=== PATIENT | female | born 1985 | race Caucasian/White ===

== ENCOUNTER 2017-08-09 16:35 | Emergency (ER) | payer OTHER ==
--- NOTE | 2017-08-09 16:45 | PDOC ---
History of Present Illness - General Chief Complaint: Injury Stated Complaint: RIGHT FOOT/TOE PAIN Time Seen by Provider: 08/09/17 16:45 - History of Present Illness Initial Comments: 08/09/17 16:47 Chief complaint: Foot injury History of present illness: Stubbed her toe last night on her bed. Pain and swelling right second toe. No other injuries Physical exam alert no acute distress Afebrile vital signs normal Right foot: Second toe is red and swollen. No obvious deformity. No other trauma noted to the foot ankle or leg. Impression: Fractured toe Plan: X-ray and further orthopedic management depending on nature of injury. Past History - Past Medical History Allergies/Adverse Reactions: Allergies Allergy/AdvReac Type Severity Reaction Status Date / Time No Known Allergies Allergy Verified 08/09/17 16:44 Home Medications: Ambulatory Orders Ibuprofen 600 mg PO QID PRN #20 tablet 08/09/17 Medical Decision Making - Medical Decision Making 08/09/17 17:47 X-ray reviewed: Nondisplaced fracture of the dorsal lip of the distal phalanx, and nondisplaced fracture of the medial metaphysis of the distal phalanx. No deformity either angular or rotational suggested by the x-ray. Rest ice elevation and symptomatic treatment recommended. Orthopedic follow-up. *DC/Admit/Observation/Transfer Diagnosis at time of Disposition: Fractured toe Qualifiers: Encounter type: initial encounter Toe: lesser toe Fracture type: closed Phalanx : unspecified phalanx Fracture alignment: nondisplaced Laterality: right Qualified Code(s): S92.504A - Nondisplaced unspecified fracture of right lesser toe(s), initial encounter for closed fracture - Discharge Dispostion Disposition: HOME Condition at time of disposition: Improved Admit: No - Prescriptions Prescriptions: Ibuprofen 600 mg PO QID PRN #20 tablet PRN Reason: Pain - Referrals Referrals: Jamel Booth MD [Staff Physician] - 1 week - Patient Instructions Printed Discharge Instructions: DI for Toe Fracture Additional Instructions: Rest ice and elevate. Pain medication as needed and prescribed. Walking as tolerated once pain subsides. See orthopedist for follow-up as for any fracture. No manipulation of the injury is necessary at this time. - Post Discharge Activity Forms/Work/School Notes: Back to Work
[2017-08-09 16:52] VITALS: BP 106/70; PULSE 69; TEMP 97.9; BMI 19.7
== END 2017-08-09 18:02 | disposition home or self-care (01) ==
LOC: FER 16:35
DX: S92.504A Nondisplaced unspecified fracture of right lesser toe(s), initial encounter for closed fracture (principal); W22.01XA Walked into wall, initial encounter; Y93.89 Activity, other specified; Y92.9 Unspecified place or not applicable
CPT/HCPCS: 73660-TC-FY; 84703; 99282-25

== ENCOUNTER 2017-08-30 23:16 | Emergency (ER) | payer OTHER ==
[2017-08-30 23:34] VITALS: BP 111/82; PULSE 72; TEMP 98.2; BMI 20.5
--- NOTE | 2017-08-30 23:45 | PDOC ---
History of Present Illness - General Chief Complaint: Injury Stated Complaint: RT ARM PAIN Time Seen by Provider: 08/30/17 23:29 - History of Present Illness Initial Comments: This 31-year-old woman with no significant past medical history presents with episode of right upper extremity trauma earlier today. At approximately 12 noon (around 11 hours prior to presentation), as patient was walking down a sidewalk that was icy. She slipped and fell, landing on right forearm. There was no loss of consciousness/head or neck injury. Since the episode, patient has had persistent pain in the distal forearm as well as increasing soreness of her right shoulder. She denies headache, neck pain, chest pain, shortness of breath, abdominal pain. She has had mild swelling and pain in the upper portion of her right thigh, posterior aspect but she is able to weight-bear without difficulty. No pain or swelling in either distal lower extremity Past History - Past Medical History Allergies/Adverse Reactions: Allergies Allergy/AdvReac Type Severity Reaction Status Date / Time No Known Allergies Allergy Verified 08/09/17 16:44 Home Medications: Ambulatory Orders Ibuprofen 600 mg PO QID PRN #20 tablet 08/09/17 COPD: No Other medical history: DENIES - Suicide/Smoking/Psychosocial Hx Smoking History: Never smoked Hx Alcohol Use: No Drug/Substance Use Hx: No Substance Use Type: None Review of Systems - Review of Systems Able to Perform ROS?: Yes Comments:: 12 point review of systems is negative except for what is noted in the history of present illness *Physical Exam - Vital Signs Last Vital Signs Temp Pulse Resp BP Pulse Ox 98.2 F 72 16 111/82 98 08/30/17 23:20 08/30/17 23:20 08/30/17 23:20 08/30/17 23:20 08/30/17 23:20 - Physical Exam Comments: GENERAL: HEAD: Normal with no signs of trauma. EYES: PERRLA, EOMI, sclera anicteric, conjunctiva clear. ENT: Ears normal, nares patent, oropharynx clear without exudates. Moist mucous membranes. NECK: Normal range of motion, supple without lymphadenopathy, JVD, or masses. LUNGS: Breath sounds equal, clear to auscultation bilaterally. No wheezes, and no crackles. HEART:Regular rate and rhythm, normal S1 and S2 without murmur, rub or gallop. ABDOMEN:.normal bowel sounds No guarding,tenderness or rebound.No masses No distention. EXTREMITIES: Right upper extremity-mildly tender, mildly edematous 2 cm x 3 cm faintly ecchymotic ulnar aspect of the distal third forearm; no deformity No pain with supination/pronation; no tenderness of wrist/snuffbox/proximal forearm Mild tenderness of superior humerus at the shoulder; no deformity ecchymosis or edema Patient has pain on abduction of the right arm Right lower extremity-mild tenderness, faint ecchymosis, mild edema posterior aspect of proximal thigh Full range of motion of the hip is present; no anterior tenderness Remainder of the extremity exam is normal NEUROLOGICAL: Cranial nerves II through XII grossly intact. Normal speech. No focal neurological deficits. MUSCULOSKELETAL: Back non-tender to palpation, no CVA tenderness SKIN: Warm, Dry, normal turgor, no rashes or lesions noted. PGU is negative Medical Decision Making - Medical Decision Making 08/31/17 01:12 As radiology staff was on its way to perform right forearm/right shoulder x- rays to evaluate this patient's pain after falling, she left AMA, stating that she no longer wanted to wait for further evaluation. Patient had been informed earlier that groundwater monitoring technician needed to be called from home to perform the x -rays; at that time, she had no objections and stated that she wanted to "make sure there was no fracture" *DC/Admit/Observation/Transfer Diagnosis at time of Disposition: AMA - Signed out against medical advice - Discharge Dispostion Disposition: AGAINST MEDICAL ADVICE Condition at time of disposition: Stable - Referrals - Patient Instructions - Post Discharge Activity
== END 2017-08-31 01:07 | disposition left against medical advice (07) ==
LOC: FER 23:16
DX: Z53.21 Procedure and treatment not carried out due to patient leaving prior to being seen by health care provider (principal); W00.0XXA Fall on same level due to ice and snow, initial encounter; Y93.89 Activity, other specified; Y92.410 Unspecified street and highway as the place of occurrence of the external cause
CPT/HCPCS: 84703; 99281-25

== ENCOUNTER 2018-06-06 11:05 | Emergency (ER) | payer OTHER ==
--- NOTE | 2018-06-06 11:08 | PDOC ---
History of Present Illness - General Chief Complaint: Lightheaded Stated Complaint: DIZZY Time Seen by Provider: 06/06/18 11:08 History Source: Patient (Patient walked in complaining feeling dizzy and weak, delayed in her menstrual period. Had previous and she thinks that she has similar symptoms of ) Exam Limitations: No Limitations - History of Present Illness Timing/Duration: unsure, constant Severity: mild, moderate Modifying Factors: improves with: rest Associated Symptoms: reports: loss of appetite, malaise Past History - Travel Traveled outside of the country in the last 30 days: No Close contact w/someone who was outside of country & ill: No - Past Medical History Allergies/Adverse Reactions: Allergies Allergy/AdvReac Type Severity Reaction Status Date / Time No Known Allergies Allergy Verified 06/06/18 11:06 Home Medications: Ambulatory Orders NK [No Known Home Medication] 06/06/18 COPD: No - Surgical History Other Surgical History: an once. 06/07/18 18:02 - Suicide/Smoking/Psychosocial Hx Smoking History: Never smoked Hx Alcohol Use: No Drug/Substance Use Hx: No Substance Use Type: None Review of Systems - Review of Systems Able to Perform ROS?: Yes Is the patient limited Moldovan proficient: Yes Constitutional: Yes: Symptoms Reported, Malaise HEENTM: No: Symptoms Reported, See HPI, Eye Pain, Blurred Vision, Tearing, Recent change in vision, Double Vision, Cataracts, Ear Pain, Ocular Prothesis, Ear Discharge, Nose Pain, Nose Congestion, Tinnitus, Nose Bleeding, Hearing Loss , Throat Pain, Throat Swelling, Mouth Pain, Dental Problems, Difficulty Swallowing, Mouth Swelling, Other : Yes: Frequency Hematologic/Lymphatic: No: See HPI All Other Systems: Reviewed and Negative *Physical Exam - Physical Exam General Appearance: Yes: Nourished, Appropriately Dressed, Mild Distress HEENT: positive: AMAN Neck: positive: Trachea midline, Supple Respiratory/Chest: positive: Lungs Clear Cardiovascular: positive: Regular Rhythm, Regular Rate Female Pelvic Exam: positive: other (deferred) Gastrointestinal/Abdominal: positive: Normal Bowel Sounds, Flat, Soft Rectal Exam: negative: heme negative stool, normal exam, NL Prostate, normal rectal tone, deferred, melena, decreased tone, heme positive stool, hemorrhoids , other Musculoskeletal: positive: Normal Inspection Extremity: positive: Normal Capillary Refill, Normal Inspection, Normal Range of Motion Integumentary: positive: Dry, Warm Neurologic: positive: candy cutter hand II-XII NML intact, Fully Oriented, Alert, Normal Mood/ Affect ED Treatment Course - LABORATORY CBC & Chemistry Diagram: 06/06/18 11:38 06/06/18 11:38 *DC/Admit/Observation/Transfer Diagnosis at time of Disposition: Uterine fibroids affecting in first trimester - Discharge Dispostion Disposition: HOME Condition at time of disposition: Stable Decision to Admit order: No - Referrals Referrals: Jaqueline Vaughn MD [Staff Physician] - - Patient Instructions Printed Discharge Instructions: Exercise and : A Healthy Combination Additional Instructions: suggest make apointment with automotive teacher MD Take all info from here with you - Post Discharge Activity
[2018-06-06 11:33] VITALS: BP 115/68; PULSE 74; TEMP 98.4; BMI 20.5
[2018-06-06 11:44] LABS: PH,URINE 7.5 (4.5-8); URINE APPEARANCE Cloudy; URINE BILIRUBIN Negative (NEGATIVE); URINE COLOR Yellow; URINE GLUCOSE (UA) Negative (NEGATIVE); URINE KETONE Negative (NEGATIVE); URINE LEUK ESTERASE TRACE (NEGATIVE); URINE NITRITE Positive (NEGATIVE); URINE PROTEIN Negative (NEGATIVE); URINE UROBILINOGEN 0.2 (0.2-1.0)
[2018-06-06 12:19] LABS: ALBUMIN 4.2 g/dl (3.5-5.0); ALK PHOS 47 U/L (32-92); ANION GAP 6 MMOL/L (8-16); BILIRUBIN,TOTAL 0.6 mg/dl (0.2-1.0); BLOOD UREA NITROGEN 11 mg/dl (7-18); CALCIUM 9.1 mg/dl (8.4-10.2); CHLORIDE 102 mmol/L (98-107); CO2 24 mmol/L (22-28); CREATININE 0.5 mg/dl (0.6-1.3); GLUCOSE,RANDOM 93 mg/dl (74-106); POTASSIUM 3.7 mmol/L (3.5-5.1); SGOT/AST 19 U/L (10-42); SGPT/ALT 14 U/L (10-40); SODIUM 132 mmol/L (136-145); TOT PROT 7.4 g/dl (6.4-8.3)
[2018-06-06 12:24] LABS: BASO % 0.3 % (0-2.0); EOS % 1.8 % (0-4.5); HEMATOCRIT 36.5 % (32.4-45.2); LYMPH % 28.5 % (8-40); MCH 30.6 pg (25.7-33.7); MEAN CELL VOLUME 92.7 fl (80-96); MEAN PLT VOLUME 7.3 fl (7.5-11.1); MONO % 8.4 % (3.8-10.2); PLATELET COUNT 329 K/MM3 (134-434); RBC 3.93 M/mm3 (3.60-5.2); WHITE BLOOD COUNT 7.3 K/mm3 (4.0-10.8)
[2018-06-06 12:38] LABS: AMORP PHOS 4+ /hpf (NONE SEEN); EPI CELLS 1+ /HPF
[2018-06-06 12:39] LABS: URINE BACTERIA 1+ /hpf (NEGATIVE)
== END 2018-06-06 14:43 | disposition home or self-care (01) ==
LOC: FER 11:05
DX: O26.891 Other specified pregnancy related conditions, first trimester (principal); D25.9 Leiomyoma of uterus, unspecified
CPT/HCPCS: 36415; 76801-TC; 80053; 81003; 81015; 84702; 84703; 85025; 87086; 87186; 99282-25

== ENCOUNTER 2018-07-15 23:08 | Emergency (ER) | payer OTHER ==
--- NOTE | 2018-07-15 23:10 | PDOC ---
History of Present Illness - General Stated Complaint: H/A 13 wks Time Seen by Provider: 07/15/18 23:10 - History of Present Illness Initial Comments: This 32-year-old woman, G2 (previous ) 13 weeks presents with a history of headache. Patient states that she had onset of bilateral "strong" headache at 2 PM today; she states that onset of headache was gradual. It was not accompanied by nausea/vomiting, vision changes, difficulty with speech or walking, extremity weakness or facial droop. She took 500 mg of acetaminophen and had relief of the pain after approximately 8 hours (i.e., 2 hours prior to presentation). She is currently comfortable without any further pain or other symptoms. She presents to the emergency room because she feels that the headache was stronger than her usual headache and took longer to resolve. 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 She also had an argument with her partner yesterday and felt that she had neck and upper back soreness from the tension. Patient was treated here 06/06/18 for urinary tract infection. She currently has no dysuria/urinary urgency/hematuria Past History - Past Medical History Allergies/Adverse Reactions: Allergies Allergy/AdvReac Type Severity Reaction Status Date / Time No Known Allergies Allergy Verified 06/06/18 11:06 Home Medications: Ambulatory Orders Acetaminophen [Tylenol -] 500 mg PO ONCE 07/15/18 Amoxicillin - [Amoxicillin 500mg Capsule -] 500 mg PO BID #6 capsule 07/15/18 COPD: No CHF: No - Suicide/Smoking/Psychosocial Hx Smoking History: Never smoked Have you smoked in the past 12 months: No Hx Alcohol Use: No Drug/Substance Use Hx: No Substance Use Type: None Review of Systems - Review of Systems Able to Perform ROS?: Yes Comments:: 12 point review of systems is negative except for what is noted in the history of present illness *Physical Exam - Physical Exam Comments: GENERAL: Adult female, alert and oriented 3, no acute distress HEAD: Normal with no signs of trauma. EYES: PERRLA, EOMI, sclera anicteric, conjunctiva clear. ENT: Ears normal, nares patent, oropharynx clear without exudates. Moist mucous membranes. NECK: Normal range of motion, supple without lymphadenopathy, JVD, or masses. LUNGS: Breath sounds equal, clear to auscultation bilaterally. No wheezes, and no crackles. HEART:Regular rate and rhythm, normal S1 and S2 without murmur, rub or gallop. ABDOMEN:.normal bowel sounds No guarding,tenderness or rebound.No masses No distention. EXTREMITIES: Normal range of motion, no edema. No clubbing or cyanosis. No erythema, or tenderness. NEUROLOGICAL: Cranial nerves II through XII grossly intact. Motor functioning intact throughout. Normal speech. No focal neurological deficits. MUSCULOSKELETAL: Back non-tender to palpation, no CVA tenderness SKIN: Warm, Dry, normal turgor, no rashes or lesions noted. Medical Decision Making - Medical Decision Making This 32-year-old woman, first trimester , presents with a several hour episode of bilateral headache today. Patient took acetaminophen and Headache resolved after several hours. No associated or residual symptoms have occurred the patient is concerned because of the length of the headache. Exam as noted is normal. Patient is reassured that headache appears most likely to be muscle contraction/tension type headache and that she should not be concerned at this point that etiology this more serious. She should return or see her doctor if severe headache pain is sudden/persistently severe or accompanied by symptoms that were reviewed with the patient (vomiting/extremity weakness/facial droop, etc.). Since patient was treated for UTI approximately 5 weeks ago and has not had any repeat urinalysis since then, repeat UA was performed: This is positive for nitrite on dipstick and urinalysis showed WBCs/rbc's/2+ bacteria. Urine was sent for culture and sensitivity. Meanwhile patient is asymptomatic; she will be treated with a short course of amoxicillin 500 mg twice a day for 3 days ( first dose was given here in the emergency room). Escherichia coli that was isolated from UTI in May was sensitive to all antibiotics. Patient should make an appointment with her civil engineering project designer within the next 5 days for follow-up regarding her asymptomatic bacteriuria. She should return to the ER as noted above she has severe headache . *DC/Admit/Observation/Transfer Diagnosis at time of Disposition: Bacteriuria during in first trimester Headache Qualifiers: Headache type: tension-type Headache chronicity pattern: acute headache Intractability: not intractable Qualified Code(s): G44.209 - Tension-type headache, unspecified, not intractable - Discharge Dispostion Disposition: HOME Condition at time of disposition: Stable - Prescriptions Prescriptions: Amoxicillin - [Amoxicillin 500mg Capsule -] 500 mg PO BID #6 capsule - Referrals - Patient Instructions Printed Discharge Instructions: DI for Hormonal and Tension Headaches Additional Instructions: rest; drink plenty of fluids tylenol as needed for headache Return to ER if you have persistent, severe headache or vomiting/vision changes/ difficulty with speaking Amoxicillin 500 mg twice a day for 3 days Follow-up with civil engineering project designer within the next 5 days - Post Discharge Activity
[2018-07-15 23:25] VITALS: BP 99/65; PULSE 77; TEMP 98.5; BMI 22.1
[2018-07-15 23:28] LABS: HCG,QUALITATIVE URINE Positive
[2018-07-15 23:31] LABS: URINE APPEARANCE Clear; URINE BILIRUBIN Negative (NEGATIVE); URINE COLOR Yellow; URINE GLUCOSE (UA) Negative (NEGATIVE); URINE KETONE Negative (NEGATIVE); URINE LEUK ESTERASE Negative (NEGATIVE); URINE NITRITE Positive (NEGATIVE); URINE PROTEIN Negative (NEGATIVE); URINE UROBILINOGEN 0.2 (0.2-1.0)
[2018-07-15 23:35] LABS: EPI CELLS 1+ /HPF; URINE BACTERIA 2+ /hpf (NEGATIVE)
[2018-07-15] MEDS ORDERED: AMOXICILLIN 500 MG CAPSULE (FP) PO ONE (23:43)
[2018-07-15] MEDS ORDERED: AMOXICILLIN 250 MG CAPSULE ONE ×2 (23:45→23:47)
== END 2018-07-15 23:52 | disposition home or self-care (01) ==
LOC: FER 23:08
DX: O26.891 Other specified pregnancy related conditions, first trimester (principal); Z3A.13 13 weeks gestation of pregnancy; R82.71 Bacteriuria; G44.209 Tension-type headache, unspecified, not intractable
CPT/HCPCS: 81003; 81015; 84703; 87086; 87186; 99281-25

== ENCOUNTER 2018-09-15 14:37 | Emergency (ER) | payer OTHER ==
[2018-09-15 14:56] VITALS: BP 101/62; PULSE 78; TEMP 98; BMI 24.2
--- NOTE | 2018-09-15 14:58 | PDOC ---
History of Present Illness - General History Source: Patient Exam Limitations: No Limitations - History of Present Illness Initial Comments: 09/15/18 15:19 The patient is a 32 year old female, , 22 weeks , with no significant past medical history of who presents to the emergency department with one week of skin itching described as uncomfortable. The patient reports the itching started on her stomach and spread to her legs, arms, and head, however, there are no visible skin changes or rashes. 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 Lopez on 09/07/18, everything was normal and her next check up is in 2 weeks. The patient states she is taking vitamins and vitamin D. The patient denies vaginal itching, vaginal discharge, frequency, urgency or hematuria. The patient denies chest pain, shortness of breath, headache or dizziness. The patient denies fever, chills, nausea, vomit, diarrhea or constipation. Allergies: NKDA Past surgical history: None reported Social history: No tobacco use. No alcohol use. 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 Melissa Lopez <Jesus Alberto Mendez - Last Filed: 09/15/18 15:26> <Eladio Thibodeaux - Last Filed: 09/15/18 15:35> - General Chief Complaint: Itching Stated Complaint: VAGINAL ITCHING 22 WEEKS Time Seen by Provider: 09/15/18 14:58 Past History <Jesus Alberto Mendez - Last Filed: 09/15/18 15:26> - Past Medical History COPD: No CHF: No - Reproductive History Is Patient Now?: Yes (#): 3 Para: 0 Therapeutic (s) & number: Yes (2) Spontaneous : 0 - Suicide/Smoking/Psychosocial Hx Smoking History: Never smoked Have you smoked in the past 12 months: No Information on smoking cessation initiated: No Hx Alcohol Use: No Drug/Substance Use Hx: No Substance Use Type: None <Eladio Thibodeaux - Last Filed: 09/15/18 15:35> - Past Medical History Allergies/Adverse Reactions: Allergies Allergy/AdvReac Type Severity Reaction Status Date / Time No Known Allergies Allergy Verified 09/15/18 14:39 Home Medications: Ambulatory Orders Menthol/Camphor [Sarna Anti-Itch Lotion] 222 ml TP BID PRN #1 lotion 09/15/18 No122/Iron/Folic Acid [ Multi Tablet] 1 tab PO DAILY 09/15/18 Review of Systems - Review of Systems Able to Perform ROS?: Yes Comments:: 09/15/18 15:21 CONSTITUTIONAL: Absent: Fever, Chills, Diaphoresis, Generalized Weakness, Malaise, Loss of Appetite HEENT: Absent: Rhinorrhea, Nasal Congestion, Throat Pain, Throat Swelling, Difficulty Swallowing, Mouth Swelling, Ear Pain, Eye Pain, Visual Changes CARDIOVASCULAR: Absent: Chest Pain, Syncope, Palpitations, Irregular Heart Rate, Lightheadedness , Peripheral Edema RESPIRATORY: Absent: Cough, Shortness of Breath, SOB with Exertion, Orthopnea, Wheezing, Stridor, Hemoptysis GASTROINTESTINAL: Absent: Abdominal pain, Abdominal Distension, Nausea, Vomiting, Diarrhea, Constipation, Melena, Hematochezia GENITOURINARY: Absent: Dysuria, Frequency, Urgency, Hesitancy, Flank Pain, Genital Pain MUSCULOSKELETAL: Absent: Myalgia, Arthralgia, Joint Swelling, Back pain, Neck Pain SKIN: Present: skin itching Absent: Vaginal itching, Rash, Pallor HEMEATOLOGIC/IMMUNOLOGIC: Absent: Easy Bleeding, Easy Bruising, Lymphadenopathy, Frequent infections ENDOCRINE: Absent: Unexplained Weight Gain, Unexplained Weight Loss, Heat Intolerance, Cold Intolerance NEUROLOGIC: Absent: Headache, Focal Weakness, Paresthesias, Vertigo, Lightheadedness, Unsteady Gait, Seizure, Mental Status Changes, Incontinence PSYCHIATRIC: Absent: Anxiety, Depression All Other Systems: Reviewed and Negative <Jesus Alberto Mendez - Last Filed: 09/15/18 15:26> *Physical Exam - Vital Signs Last Vital Signs Temp Pulse Resp BP Pulse Ox 98 F 78 16 101/62 98 09/15/18 14:39 09/15/18 14:39 09/15/18 14:39 09/15/18 14:39 09/15/18 14:39 - Physical Exam Comments: 09/15/18 15:22 GENERAL: The patient is awake, alert, and fully oriented, in no acute distress. HEAD: Normal with no signs of trauma. EYES: Pupils equal, round and reactive to light, extraocular movements intact, sclera anicteric, conjunctiva clear. ENT: Ears normal, nares patent, oropharynx clear without exudates. Moist mucous membranes. NECK: Normal range of motion, supple without lymphadenopathy, JVD, or masses. LUNGS: Breath sounds equal, clear to auscultation bilaterally. No wheezes, and no crackles. HEART: Regular rate and rhythm, normal S1 and S2 without murmur, rub or gallop. ABDOMEN: (+) gravid uterus to the umbilicus. (+) movement. Soft, nontender , normoactive bowel sounds. No guarding, no rebound. No masses. EXTREMITIES: Normal range of motion, no edema. No clubbing or cyanosis. No cords , erythema, or tenderness. NEUROLOGICAL: Cranial nerves II through XII grossly intact. Normal speech, normal gait. PSYCH: Normal mood, normal affect. SKIN: Warm, Dry, normal turgor, no rashes or lesions noted. <Jesus Alberto Mendez - Last Filed: 09/15/18 15:26> - Vital Signs Last Vital Signs Temp Pulse Resp BP Pulse Ox 98 F 78 16 101/62 98 09/15/18 14:39 09/15/18 14:39 09/15/18 14:39 09/15/18 14:39 09/15/18 14:39 <Eladio Thibodeaux - Last Filed: 09/15/18 15:35> Moderate Sedation - Procedure Monitoring Vital Signs: Procedure Monitoring Vital Signs Temperature 98 F 09/15/18 14:39 Pulse Rate 78 09/15/18 14:39 Respiratory Rate 16 09/15/18 14:39 Blood Pressure 101/62 09/15/18 14:39 O2 Sat by Pulse Oximetry (%) 98 09/15/18 14:39 <Jesus Alberto Mendez - Last Filed: 09/15/18 15:26> - Procedure Monitoring Vital Signs: Procedure Monitoring Vital Signs Temperature 98 F 09/15/18 14:39 Pulse Rate 78 09/15/18 14:39 Respiratory Rate 16 09/15/18 14:39 Blood Pressure 101/62 09/15/18 14:39 O2 Sat by Pulse Oximetry (%) 98 09/15/18 14:39 <Eladio Thibodeaux - Last Filed: 09/15/18 15:35> Medical Decision Making - Medical Decision Making 09/15/18 15:29 patient with 22 week , c/o itching all over her body, which she says started in the area of her stretching skin over her growing belly, but now just has the sensation of feeling itchy. No vaginal complaints at all, no vaginal discharge, no bleeding, no vaginal itching, just general skin itching. Patient is in regular OB care, but decided to come to the ED. Has regular f/u with OB. Exam is notable for normal skin throughout, including over gravid uterus. Assessment: nonspecific itching, advised not to take meds unless approved by OB , and will Rx Sarna lotion for symptomatic relief. <Eladio Thibodeaux - Last Filed: 09/15/18 15:35> *DC/Admit/Observation/Transfer - Attestations Scribe Attestion: 09/15/18 15:23 Documentation prepared by Jesus Alberto Mendez, acting as medical office technology instructor for Eladio Thibodeaux MD <Jesus Alberto Mendez - Last Filed: 09/15/18 15:26> - Discharge Dispostion Decision to Admit order: No <Eladio Thibodeaux - Last Filed: 09/15/18 15:35> Diagnosis at time of Disposition: Pruritic condition - Discharge Dispostion Disposition: HOME Condition at time of disposition: Stable - Prescriptions Prescriptions: Menthol/Camphor [Sarna Anti-Itch Lotion] 222 ml TP BID PRN #1 lotion PRN Reason: itching - Patient Instructions Printed Discharge Instructions: DI for Itching Additional Instructions: evaluation today for itching abdomen and bocy no skin rash seen may be due to no signs of serious illness use sarna lotion to the areas of itching to relieve the symptoms, Rx sent to your pharmacy call your OB doctor to arrange for follow up
== END 2018-09-15 15:38 | disposition home or self-care (01) ==
LOC: FER 14:37
DX: O26.892 Other specified pregnancy related conditions, second trimester (principal); Z3A.22 22 weeks gestation of pregnancy; L29.9 Pruritus, unspecified
CPT/HCPCS: 99281-25

== ENCOUNTER 2019-04-22 23:24 | Emergency (ER) | payer OTHER ==
[2019-04-22 23:40] VITALS: BP 104/73; PULSE 65; TEMP 97.7; BMI 24.7
--- NOTE | 2019-04-22 23:48 | PDOC ---
History of Present Illness - General Chief Complaint: Pain, Acute Stated Complaint: CHEST PAIN ALL DAY/POSSIBLE BED BUG BITES Time Seen by Provider: 04/22/19 23:34 History Source: Patient Exam Limitations: No Limitations - History of Present Illness Initial Comments: 04/22/19 23:45 This is a 33-year-old female who comes in with 2 complaints. Patient is complaining of some anxiety stress and pleuritic type chest pain. Patient denies any cough, congestion, fever, chills, nausea, vomiting or diarrhea. Patient denies any history of chest pain in the past. Patient is 3 months . Patient is also complaining of a rash on her abdominal area and left hand. Patient is concerned it may be bug bites. Patient denies any other complaints. Allergies: as per nursing notes Past Medical History: none Social history: Lives with family. No smoking. No alcohol. No illicit drugs. Surgical history: None General: No fevers or chills, no weakness, no weight loss HEENT: No change in vision. No sore throat,. No ear pain CardioVascular: no chest discomfort. No shortness of breath Respiratory:No cough, or wheezing. Gastrointestinal: no nausea, vomiting, diarrhea or constipation, No rectal bleeding Genitourinary: No dysuria, hematuria, or frequency Musculoskeletal: No joint or muscle pain or swelling Neurologic: No headache, vertigo, dizziness or loss of consciousness Psychiatric: nor depression Skin: No rashes or easy bruising Endocrine: no increased thirst or abnormal weight change Allergic: no skin or latex allergy All other systems reviewed and normal Exam: General: Well-nourished well-developed individual, no acute distress HEENT: Throat: Normal, tonsils normal, no erythema or exudate Neck: Supple, no meningeal signs, no lymphadenopathy Eyes::Pupils equal reactive and round, extraocular motion intact Chest: Nontender to palpation Cardiac: S1-S2 normal, regular rate and rhythm, no murmurs rubs or gallops Respiratory: Lungs clear to auscultation bilateral Abdomen: Soft, nondistended, normal bowel sounds, there is no tenderness on palpation diffusely Extremities: Warm, dry, no cyanosis, clubbing, or edema Skin: There is a rash consistent with poison vinay on patient's hand and abdomen. Neuro: Alert and oriented x3, CN II - XII intact, nonfocal exam with normal strength, normal sensation, normal reflexes, normal gait, Psych: Normal mood and affect EKG shows normal sinus rhythm no acute ST-T wave changes normal EKG Assessment and plan: This is a 33-year-old female who is under a lot of stress and came in with some chest pain. Patient had a normal EKG and was reassured that this most likely is just secondary to being a new mom and lack of sleep. In addition to that patient "bug bites" are actually poison vinay. Patient was recommended to get some calamine lotion and or Benadryl lotion to put on the areas Past History - Past Medical History Allergies/Adverse Reactions: Allergies Allergy/AdvReac Type Severity Reaction Status Date / Time No Known Allergies Allergy Verified 04/22/19 23:32 Home Medications: Ambulatory Orders NK [No Known Home Medication] 04/22/19 COPD: No CHF: No - Reproductive History (#): 3 Para: 0 Therapeutic (s) & number: Yes (2) Spontaneous : 0 - Psycho Social/Smoking Cessation Hx Smoking History: Never smoked Have you smoked in the past 12 months: No Information on smoking cessation initiated: No Hx Alcohol Use: No Drug/Substance Use Hx: No Substance Use Type: None *Physical Exam - Vital Signs Last Vital Signs Temp Pulse Resp BP Pulse Ox 97.7 F 65 15 104/73 98 04/22/19 23:35 04/22/19 23:35 04/22/19 23:35 04/22/19 23:35 04/22/19 23:35 Discharge - Discharge Information Problems reviewed: No Clinical Impression/Diagnosis: Atypical chest pain, Poison vinay dermatitis Condition: Stable Disposition: HOME - Follow up/Referral - Patient Discharge Instructions Additional Instructions: Purchase some calamine lotion or Benadryl lotion and put on the itching areas/ poison vinay. Return to the emergency department immediately with ANY new, persistent or worsening symptoms. Continue any medications as previously prescribed by your physician. You should follow up with your primary doctor as soon as possible regarding today's emergency department visit. . Please make sure your doctor reviews the results of your emergency evaluation. Thank you for coming to the Emergency Department today for your care. It was a pleasure to see you today. Please note that your evaluation is INCOMPLETE until you follow-up with your doctor. - Post Discharge Activity
--- NOTE | 2019-04-25 12:24 | EKG ---
Test Reason : Blood Pressure : / mmHG Vent. Rate : 065 BPM Atrial Rate : 065 BPM P-R Int : 156 ms QRS Dur : 096 ms QT Int : 410 ms P-R-T Axes : 052 058 034 degrees QTc Int : 426 ms NORMAL SINUS RHYTHM NORMAL ECG NO PREVIOUS ECGS AVAILABLE Confirmed by AMIRA GOMEZ, KAMILA ([id number]) on 04/25/2019 12:24:39 PM Referred By: EVELIN OLSON Confirmed By:KAMILA COLLIER MD
== END 2019-04-22 23:50 | disposition home or self-care (01) ==
LOC: FER 23:24
DX: R07.89 Other chest pain (principal); L23.7 Allergic contact dermatitis due to plants, except food
CPT/HCPCS: 93005; 99281-25

== ENCOUNTER 2023-02-14 13:35 | Emergency (ER) | payer OTHER ==
[2023-02-14] MEDS ORDERED: ACETAMINOPHEN 1000 MG/100 ML BAG IVPB ONE (14:05)
[2023-02-14] MEDS ORDERED: METOCLOPRAMIDE HCL INJECTION 10 MG/2 ML VIAL IVPB ONE (14:05)
[2023-02-14] MEDS ORDERED: SODIUM CHLORIDE 0.9% 500 ML INFUS.BAG IV ONE (14:12)
[2023-02-14 14:34] VITALS: BP 108/76; PULSE 66; RESP 18; TEMP 98.6; BMI 25.7
[2023-02-14] MEDS ORDERED: ACETAMINOPHEN INJECTION 100 ML IVPB ONE (14:40)
[2023-02-14] MEDS ORDERED: METOCLOPRAMIDE HCL INJECTION 10 MG/2 ML VIAL ONE (14:40)
== END 2023-02-14 15:50 | disposition home or self-care (01) ==
LOC: FER 13:35
DX: R51.9 Headache, unspecified (principal); R11.0 Nausea; W22.01XA Walked into wall, initial encounter
CPT/HCPCS: 70450-TC; 81025; 99284-25